=== PATIENT | female | born 1955 | race African-American/Black ===

== ENCOUNTER 2019-08-24 06:05 | Emergency (ER) | payer MEDICARE, OTHER ==
[~2019-08-24] VITALS: Ht 175.3 cm; Wt 68.0 kg
--- NOTE | 2019-08-24 06:05 | NUR ---
ED Nurse Note: pt brought in by ambulance for C/O rash on her left hand x 2 days. pt states she has been applying CBD oil, benadryl cream, but it is ineffective. pt is alert x4. ambulatory with a 4 point cane. VSS
[2019-08-24 06:08] VITALS: BP 130/74
--- NOTE | 2019-08-24 06:23 | Emergency Room Report ---
History of Present Illness General Chief Complaint: Skin Rash/Abscess Source: Patient Present Illness HPI Is a 64-year-old female with history of multiple sclerosis. She present itchiness and rash. This has been ongoing intermittently for the last 2 weeks. She woke up with severe itching and rash on her left hand. She did not have a ride here so she called 911. No respiratory complaint. No fever chills but no nausea no vomiting. She has no pets. No new medication. Benadryl made it better. Denies any other complaint. States she is allergic to prednisone but does not know reaction. Allergies: Coded Allergies: LATEX (Verified Allergy, Unknown, 08/24/19) PENICILLINS (Verified Allergy, Unknown, 08/24/19) PREDNISONE (Verified Allergy, Unknown, 08/24/19) Patient History Past Medical History: see triage record, old chart reviewed Past Surgical History: other Pertinent Family History: none Social History: Denies: smoking Now: No Immunizations: other Reviewed Nursing Documentation: PMH: Agreed; PSxH: Agreed Nursing Documentation-PMH Past Medical History: No History, Except For Review of Systems Eye: Denies: eye pain, blurred vision ENT: Denies: ear pain, nose congestion, throat swelling Respiratory: Denies: cough, shortness of breath Cardiovascular: Denies: chest pain, palpitations Gastrointestinal: Denies: abdominal pain, diarrhea, nausea, vomiting Musculoskeletal: Denies: back pain, joint pain Skin: Reports: rash Neurological: Denies: headache, numbness Endocrine: Denies: increased thirst, increased urine Hematologic/Lymphatic: Denies: easy bruising All Other Systems: negative except mentioned in HPI Physical Exam Vital Signs Date Time Temp Pulse Resp B/P (MAP) Pulse Ox O2 Delivery O2 Flow Rate FiO2 08/24/19 06:06 98.8 84 18 132/72 (92) 100 Room Air Vitals normal Sp02 EP Interpretation: reviewed, normal General Appearance: well appearing, no apparent distress, alert Head: normocephalic, atraumatic Eyes: bilateral eye PERRL, bilateral eye EOMI ENT: hearing grossly normal, normal pharynx Neck: full range of motion, supple, no meningismus Respiratory: chest non-tender, lungs clear, normal breath sounds Cardiovascular #1: regular rate, rhythm, no murmur Gastrointestinal: normal bowel sounds, non tender, no mass, no organomegaly, no bruit, non-distended Musculoskeletal: back normal, normal range of motion, other - Left hand: She has 3 area of erythema. Slightly raised. No warmth. No abscess. Psychiatric: mood/affect normal Medical Decision Making Diagnostic Impression: Primary Impression: Rash and other nonspecific skin eruption ER Course Presents with a rash. Could be early cellulitis. Could be from insect bite. Will check labs and liver enzymes to make sure there is no evidence of abnormality. Last Vital Signs Date Time Temp Pulse Resp B/P (MAP) Pulse Ox O2 Delivery O2 Flow Rate FiO2 08/24/19 06:08 98.5 80 19 130/74 100 Room Air Status: improved Disposition: HOME, SELF-CARE Condition: Stable Scripts Cephalexin* (KEFLEX*) 500 Mg Capsule 500 MG ORAL TID, #21 CAP Prov: Shashank Colon MD 08/24/19 Diphenhydramine Hcl* (BENADRYL*) 25 Mg Capsule 50 MG ORAL Q6H PRN for Itching, #30 CAP Prov: Shashank Colon MD 08/24/19 Patient Instructions: Rash Additional Instructions: Follow-up with your doctor in 7 days. Return if worse. Shashank Colon MD Aug 24, 2019 06:23
[2019-08-24] MEDS ORDERED: CEPHALEXIN500 MG ORAL (06:31)
[2019-08-24] MEDS ORDERED: BENADRYL25 MG ORAL (06:31)
--- NOTE | 2019-08-24 06:32 | NUR ---
ED Nurse Note: blood sample sent down to lab
--- NOTE | 2019-08-24 07:05 | NUR ---
ED Nurse Note: Report given to MICAH Pringle .
[2019-08-24 07:26] LABS: BASOPHILS % (AUTO) 1.3 % (0.0-2.0); EOSINOPHILS % (AUTO) 1.5 % (0.0-3.0); HEMATOCRIT 40.5 % (37.0-47.0); HEMOGLOBIN 14.2 G/DL (12.0-16.0); LYMPHOCYTES % (AUTO) 44.3 % (20.0-45.0); MEAN CORPUSCULAR VOLUME 87 FL (80-99); MONOCYTES % (AUTO) 4.7 % (1.0-10.0); NEUTROPHILS % (AUTO) 48.2 % (45.0-75.0); PLATELET COUNT 237 K/UL (150-450); RED BLOOD COUNT 4.68 M/UL (4.20-5.40); RED CELL DISTRIBUTION WIDTH 12.1 % (11.6-14.8); WHITE BLOOD COUNT 6.6 K/UL (4.8-10.8)
[2019-08-24 07:33] LABS: ANION GAP 4 mmol/L (5-15); BLOOD UREA NITROGEN 5 mg/dL (7-18); CALCIUM 8.6 MG/DL (8.5-10.1); CARBON DIOXIDE 31 MMOL/L (21-32); CHLORIDE 108 MMOL/L (98-107); CREATININE 0.8 MG/DL (0.55-1.30); SODIUM 143 MMOL/L (136-145)
[2019-08-24 07:38] LABS: ALANINE AMINOTRANSFERASE 15 U/L (12-78); ALBUMIN 3.3 G/DL (3.4-5.0); ALBUMIN/GLOBULIN RATIO 0.8 (1.0-2.7); ALKALINE PHOSPHATASE 70 U/L (46-116); ASPARTATE AMINO TRANSFERASE 13 U/L (15-37); BILIRUBIN,TOTAL 0.7 MG/DL (0.2-1.0)
[2019-08-24] MEDS ORDERED: TECFIDERA1 EACH PO (07:39)
[2019-08-24] MEDS ORDERED: ANTI-ITCH28 G1 TP (07:44)
[2019-08-24 07:59] VITALS: BP 130/74
--- NOTE | 2019-08-24 08:03 | NUR ---
ER DISCHARGE NOTE: Patient is cleared to be discharged per ERMD, pt is aox4, on room air, with stable vital signs. pt was given dc and prescription instructions, pt was able to verbalize understanding, pt id band and iv site removed without complications. pt is able to ambulate with steady gait. pt took all belongings.
== END 2019-08-24 08:01 | disposition home or self-care (01) ==
LOC: EDUNIT# 06:05 → EDBD 06:05 → EMR 07:15
DX: R21 Rash and other nonspecific skin eruption (principal); Z91.040 Latex allergy status; Z88.0 Allergy status to penicillin; Z88.8 Allergy status to other drugs, medicaments and biological substances
CPT/HCPCS: 36415; 80053; 85025; 99284